=== PATIENT | male | born 1930 | race Caucasian/White ===

== ENCOUNTER 2016-08-07 06:39 | Day surgery (SDC) | payer MEDICARE ==
[2016-08-07] VITALS (11 sets, daily range): BP systolic 142–156; BP diastolic 91–102; PULSE 69–91; RESP 16–18; TEMP 97.6–98.4; O2SAT 94–97
[~2016-08-07] VITALS: Ht 167.6 cm; Wt 79.2 kg
[~2016-08-07 06:39] MED LIST: ASPI81TA82 PO; CARV25TA PO; CLOP75 PO; FISH1000 PO; FLUO10TA PO; LISI-360 PO; PROT40TA PO; SIMV40TA PO; TESS200C PO
[2016-08-07] MEDS ORDERED: ASPI81CH37 CHEW (07:11)
[2016-08-07] MEDS ORDERED: ROSU5 PO (07:11)
[2016-08-07] MEDS ORDERED: ALBU0.08 NEB (07:11)
[2016-08-07] MEDS ORDERED: NITR0.4S SL (07:11)
[2016-08-07] MEDS ORDERED: LISI-515 PO (07:11)
[2016-08-07] MEDS ORDERED: CARV25TA PO (07:11)
[2016-08-07] MEDS ORDERED: VITA100064 PO (07:11)
[2016-08-07] MEDS ORDERED: PANT40TA3 PO (07:11)
[2016-08-07] MEDS ORDERED: FURO40TA PO (07:11)
[2016-08-07] MEDS ORDERED: IPRA0.02 NEB (07:11)
[2016-08-07] MEDS ORDERED: ISOS30TA3 PO (07:11)
[2016-08-07] MEDS ORDERED: BUPR150T3 PO (07:11)
[2016-08-07] MEDS ORDERED: SODIUM CHLOR 0.9% 1000 ML INJ 1,000 ML IV SCH (07:19)
[2016-08-07] MEDS ORDERED: HEPARIN-NS/PF INJ 500 ML ONE (08:19)
[2016-08-07] MEDS ORDERED: IOHEXOL 350 MG/ML 100 ML BTL (for Cath Lab) OTHER ONE (08:19)
[2016-08-07] MEDS ORDERED: IOHEXOL 350 MG/ML 50 ML BTL (for Cath Lab) OTHER ONE (08:19)
[2016-08-07] MEDS ORDERED: MIDAZOLAM HCL 2 MG/2 ML VIAL ONE (08:30)
[2016-08-07] MEDS ORDERED: HEPARIN SODIUM - IV 10,000 UNITS/10 ML VIAL ONE (09:04)
[2016-08-07] MEDS ORDERED: CLOPIDOGREL 300 MG TAB ONE (09:13)
[2016-08-07] MEDS: SODIUM CHLOR 0.9% 1000 ML INJ 1,000 ML IV SCH ×2 (09:20→16:11)
--- NOTE | 2016-08-07 09:27 | CATHPROC ---
edulio HIS Report Study Information Study Number Admission Scheduled Start Study Start [id number] Aug 07 2016 6:39AM 08/07/2016 Aug 07 2016 8:19AM Deport Service Cardiac Catheterization Admit Source Facility Department Other [facility] - Factory Representative Physician and Clinical Staff Initial Ezra Pang Inventory AssistantAbilio Banuelos RN Circulator Clark RN, Isaías Trevino cathlab, cathlab Recorder Ab Harman RCIS(BS) [place] Danielle Hart RCIS TECH2 Procedures Performed Procedure Location (Site) Vessel Name Coronary Angiograms LCA Left Coronary Coronary Angiograms RCA Right Coronary Coronary Angiograms SVG-DIAG Left Coronary Coronary Angiograms SVG-OM CIRC Coronary Angiograms SVG-RCA Right Coronary L Heart Cath PTCA SVG-DIAG Left Coronary Stent SVG-DIAG Left Coronary Wire insertion Fem Art (right) Femoral Art Equipment Time Windows 7 Deployment Lead Description Size Mfg Part Number Used/Scraped [id number] 08:57 [employer] WIRE, ASAHI PROWATER 180CM 180CM Used *[id number] TRANSDUCER, TRUWAVE [id number] 08:21 KRUEGER [place] * Used W/STOCKCOCK *[id number] *[id number] [id number] *[id number] *[id number] *[id number] 08:21 Calester INDUSTRIES PACK, CCL CUSTOM * Used *[id number] 08:21 Calester PACER PEN, SKIN DUAL W/ RULER * Used *[id number] 09:03 MEDTRONIC BALLOON, 2.5 X 25MM EUPHORA 25MM Used *[id number] 09:01 MEDTRONIC STENT, 3.0 30 INTEGRITY 3.0 30 Used *[id number] 08:59 Drip In MEDICAL 30 ALFONSO INDEFLATOR Used *[id number] 08:21 Drip In MEDICAL SHEATH, FR6.5 PRELUDE 11CM FR 6.5 038ACT Used *[id number] 08:21 Drip In MEDICAL WIRE, 3MMJ .035 180CM 180CM Used *[id number] 08:21 NAMIC MANIFOLD, 4 PORT * Used *[id number] 08:47 NYCOMED OMNIPAQUE, 350 MG, 150ML 150ML [id number] Used [id number] 08:21 [facility] BLANKET,WARM AIR CCL * Used *[id number] Equipment Model, Serial, Lot Number and Expiration Data Description Model Number Serial Number Lot Number Expiration Date BALLOON, 2.5 X 25MM EUPHORA [id number] 12-09-2017 STENT, 3.0 30 INTEGRITY [id number] 03-17-2018 History: Current Medications Medication Dosage/Unit Route Frequency Last Date/Time Taken ASA Beta Bronwyn Statins (any) History: Allergies Allergy Reaction Cipro Morphine Motrin History: Risk Factors Family History of Dyslipidemia Previous [place] Previous Heart Failure Premature CAD Yes No Yes Yes Prior Valve Prior PCI Prior PCIDate Prior CABG Prior CABGDate Surgery No Yes 02/19/1997 Yes 02/20/2012 Cerebrovascular 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 Diabetes Disease Disease Disease No No No Yes No History: Symptoms/Diagnosis Selection Items Chest pain History: CV Disease Selection Items Known CAD History: Stress Tests Stress or Imaging Studies Performed Yes Standard Exercise Stress Test No Stress Echo No Stress Test SPECT Stress Test SPECT Result Stress Test SPECT Ischemia Risk/Extent Yes Positive Unavailable Stress Test CMR No Cardiac CTA Coronary Calcium Score No No History: Other Disease Selection Items HTN History: [place]/CV Data Previous Cath Date Previous CABG Date 02/19/1997 02/20/2012 History: Other Current Smoker No Labs Hgb (g/dl) Hct (%) WBC (l/cumm) Platelets (thousands) 12.00-18.00 37.00-55.00 4.80-10.80 140.00-450.00 13.6 40.5 8.6 177 Glucose (mg/dl) BUN (mg/dl) Creatinine (mg/dl) BUN:Creatinine (1:x) 60.00-110.00 8.00-20.00 0.10-9.00 10.00-20.00 116 23 1.5 15.3 Na (meq/l) K (meq/l) 138.00-146.00 3.80-5.10 138 3.9 INR (PTT:PT) 0.50-2.00 1.1 CPK-MB (ng/ML) 0.00-7.00 Not Drawn Medication Medication Total Dose (Bolus/Oral) Medication Total Dosage/Unit 1% XYLOCAINE 20 mL HEPARIN 5600 units PLAVIX 600 mg VERSED 2 mg Medications (Bolus/Oral) Medication Time Given Dosage/Unit Administered By Reason 1% XYLOCAINE 08/07/2016 8:40:51 AM 20 mL cathlab, cathlab Patient arrived on 20 mL 1% XYLOCAINE given by cathlab, cathlab via Subcutaneous. Ordered by Ezra Lane. VERSED 08/07/2016 8:40:52 AM 2 mg sIaías English RN 2 mg VERSED given in lab by Isaías English RN in Left Antecubital via Peripheral IV. Ordered by Ezra Paredes. HEPARIN 08/07/2016 8:56:00 AM 5600 units Isaías English RN 5600 units HEPARIN given in lab by Isaías English RN in Left Antecubital via Peripheral IV. Ordered by Ezra Lane. PLAVIX 08/07/2016 9:16:02 AM 600 mg Isaías English RN 600 mg PLAVIX given in lab by Isaías English RN via Oral. Ordered by Ezra Lane. Medication (Drip) Medication Time Given Dosage/Unit Concentration/Unit Diluent (ml) Solutio n IV Solutions 08/07/2016 8:19:20 AM 0 mL (IV) 500 NaCl .9 Patient arrived on IV Solutions given by cathlab, cathlab in Left Antecubital via Peripheral IV. Pump /Drip Flow = 20 ml/hr using NaCl .9. Ordered by Ezra Lane. Initial Case Assessment Cardiovascular HR Rhythm NIBP Chest Pain 64 sinus 146/85 0 Edema Present Skin color Skin None Normal Warm Dry Circulatory - Right Pulses Dorsalis Pedis Femoral 2 2 Scale (0,1,2,3,4,d) Circulatory - Left Pulses Dorsalis Pedis Femoral 2 2 Scale (0,1,2,3,4,d) Neurological State Oriented to time-place- Alert Moves all extremities person Respiration - General Respiration Rate SpO2 (%) (B/min) 15 97 Final Case Assessment Cardiovascular HR Rhythm NIBP Chest Pain 70 sinus 146/83 0 Edema Present Skin color Skin None Normal Warm Dry Circulatory - Right Pulses Dorsalis Pedis Femoral 2 2 Scale (0,1,2,3,4,d) Circulatory - Left Pulses Dorsalis Pedis Femoral 2 2 Scale (0,1,2,3,4,d) Neurological State Oriented to time-place- Alert Moves all extremities person Respiration - General Respiration Rate SpO2 (%) (B/min) 15 97 Chronological Log Time Study Chronological Log 8:19:10 Patient arrived via Bed. 8:19:11 Patient Name, D.O.B, / Armband Verified By R.N. 8:19:11 Consent signed by the physician and the patient and verified by the Factory Representative staff. 8:19:12 Pre-op and post- op instructions given; patient acknowledges understanding of instructions. 8:19:13 Verbal Stimulation=2 Physical Stimulation=2 Airway=2 Respiration=2 TOTAL=8. (0=absent, 1=li mited, 2=present) 8:19:13 Presedation assessment performed by Factory Representative RN. 8:19:14 Immediate Presedation assesment performed by physician. 8:19:15 Patient has been NPO for More than 6Hrs. 8:19:15 Skin Breakdown- none per patient 8:19:16 Patient Warmer Placed on the Table. 8:19:17 Dez Prominences Protected 8:19:19 A # 20 IV was noted in the Antecubital (left). Grade = 0 Patient arrived on IV Solutions given by cathlab, cathlab in Left Antecubital via Peripheral IV . Pump/Drip Flow = 20 8:19:20 ml/hr using NaCl .9. Ordered by Ezra Lane. 8:19:20 History and physical on the chart or being dictated. Assessment: Initial Case, HR=64 BPM, Rhythm=sinus, LBJV=053/85 mmhg, Chest Pain=0, Edema=None, Color=Normal, Skin = Warm, Dry Right Pulses: Gil Ped=2, Femoral=2 8:25:22 Left Pulses: Gil Ped=2, Femoral=2 Neurological: State=Alert, Ox3, OCONNOR Respiration: Resp=15 B/min, SpO2=97 % Vitals capture started with the following parameters, Patient=Adult, Interval=15 min, Initial Pr dgqyof=450 mmHg, 8:25:23 Deflation Rate=5 mmHg 8:26:00 Reference ECG taken 8:26:06 QR=757 bpm, UEUY=155/85 mmhg, SpO2=96.0 %, Resp=16 B/min, Pain=0, Carlo=10, Cantu=2 8:27:02 Reference ECG taken 8:30:29 MD arrived. 8:34:25 Bilateral groins prepped with 2% chlorhexidine, and with a 3 min. waiting time. 8:34:42 Contrast Scanned 8:34:43 Immediate Presedation assesment performed by physician. Time Out. Correct patient, correct procedure,correct physician, ,power injector not loaded with contrast with surgical 8:38:41 team present. Time Out Concurred by , individual staff in procedure 8:39:02 Case Start 8:40:51 Patient arrived on 20 mL 1% XYLOCAINE given by cathlab, cathlab via Subcutaneous. Ordered by Ezra Lane. 8:40:52 2 mg VERSED given in lab by Isaías English RN in Left Antecubital via Peripheral IV. Ordered b y Ezra Lane. 8:40:58 Pressure channel 1 zeroed. 8:41:03 HR=70 bpm, CGDH=750/95 mmhg, SpO2=96.0 %, Resp=15 B/min, Pain=0, Carlo=10, Cantu=2 8:45:20 Access site was Right Femoral Artery. 8:45:25 A SHEATH, FR6.5 PRELUDE 11CM FR 6.5 was advanced into the Fem Art (right) using the Percutan eous technique. A JL 4.0 INFINITI CATHETER FR 6 was advanced over a wire. OMNIPAQUE, 350 MG, 150ML 150ML was use d for 8:46:48 injections. Recorded Pressure: Ao, HR=75, Condition=Condition 1 8:47:08 (Aorta) Ao 139/71/99 8:47:27 The LCA was injected and visualized at various angles. OMNIPAQUE, 350 MG, 150ML 150ML used. 8:49:30 Catheter was removed A JR 4.0 INFINITI CATHETER FR 6 was advanced over a wire. OMNIPAQUE, 350 MG, 150ML 150ML was use d for 8:49:31 injections. 8:50:26 The SVG-DIAG was injected and visualized at various angles. OMNIPAQUE, 350 MG, 150ML 150ML u sed. 8:50:51 The SVG-OM was injected and visualized at various angles. OMNIPAQUE, 350 MG, 150ML 150ML use d. 8:52:08 The RCA was injected and visualized at various angles. OMNIPAQUE, 350 MG, 150ML 150ML used. 8:53:41 The SVG-RCA was injected and visualized at various angles. OMNIPAQUE, 350 MG, 150ML 150ML us ed. 8:54:19 Catheter was removed 8:55:59 A LCB GUIDE CATHETER FR 6 was advanced over a wire. OMNIPAQUE, 350 MG, 150ML 150ML was used for injections. 8:56:00 5600 units HEPARIN given in lab by Isaías English RN in Left Antecubital via Peripheral IV. Or dered by Ezra Lane. 8:56:08 HR=74 bpm, UGBV=806/83 mmhg, SpO2=94.0 %, Resp=16 B/min, Pain=0, Carlo=10, Cantu=2 8:58:31 A WIRE, ASAHI PROWATER 180CM 180CM was inserted via Fem Art (right). 8:59:24 Interventional wire has crossed the lesion An STENT, 3.0 30 INTEGRITY 3.0 30 Bare Metal Stent was inserted through a LCB GUIDE CATHETER FR 6 over a 9:01:10 WIRE, ASAHI PROWATER 180CM 180CM. 9:02:19 Stent not deployed. Stent removed and intact. A BALLOON, 2.5 X 25MM EUPHORA 25MM was inserted over WIRE, ASAHI PROWATER 180CM 180CM via the SV G- 9:02:24 DIAG. 9:03:15 Activated Clotting Time Drawn A BALLOON, 2.5 X 25MM EUPHORA 25MM over a WIRE, ASAHI PROWATER 180CM 180CM in the SVG-DIAG was 9:04:48 inflated using a 30 ALFONSO INDEFLATOR at 14 alfonso for 30 sec. 9:05:49 Balloon Removed. An STENT, 3.0 30 INTEGRITY 3.0 30 Bare Metal Stent was inserted through a LCB GUIDE CATHETER FR 6 over a 9:05:52 WIRE, ASAHI PROWATER 180CM 180CM. 9:08:15 ACT (Normal Range 90-180) = 261 A STENT, 3.0 30 INTEGRITY 3.0 30 was deployed using a 30 ALFONSO INDEFLATOR at 14 atmospheres for 2 0 seconds in 9:08:25 the SVG-DIAG. 9::19 Delivery device removed 9::24 Wire removed Vitals capture started with the following parameters, Patient=Adult, Interval=15 min, Initial P rhondyt=715 mmHg, 9:10:34 Deflation Rate=5 mmHg 9::56 Catheter was removed 9:11:13 In the Fem Art (right) the SHEATH, FR6.5 PRELUDE 11CM FR 6.[address] by Ezra Montero ms. 9:11:15 HR=70 bpm, QTOX=969/83 mmhg, SpO2=95.0 %, Resp=20 B/min, Pain=0, Carlo=10, Cantu=2 9:11:48 Case End Assessment: Final Case, HR=70 BPM, Rhythm=sinus, BXDV=596/83 mmhg, Chest Pain=0, Edema=None, Color=Normal, Skin = Warm, Dry Right Pulses: Gil Ped=2, Femoral=2 9:11:57 Left Pulses: Gil Ped=2, Femoral=2 Neurological: State=Alert, Ox3, OCONNOR Respiration: Resp=15 B/min, SpO2=97 % 9:13:14 HR=71 bpm, GEEA=162/81 mmhg, SpO2=95.0 %, Resp=16 B/min, Pain=0, Carlo=10, Cantu=2 9:14:47 Sterile dressing applied to site 9:14:47 No case complications noted. 9:14:48 Cine recording checked. 9:14:50 Bedside Report will be given. 9:14:50 Implantable Device card placed in patient's chart. 9:14:52 Verbal Stimulation=2 Physical Stimulation=2 Airway=2 Respiration=2 TOTAL=8. (0=absent, 1=li mited, 2=present) 9:15:02 A Left Heart Cath was performed. 9:15:13 HR=68 bpm, TMLB=476/79 mmhg, SpO2=95.0 %, Resp=20 B/min, Pain=0, Carlo=10, Cantu=2 9:16:02 600 mg PLAVIX given in lab by Isaías English RN via Oral. Ordered by Ezra Lane. 9:18:46 Vitals capture stopped. 9:19:31 Patient moved to [facility] End Study - Contrast Media Used In Study Contrast Total Opened (mL) Total Used (mL) Total Wasted (mL) Omnipaque 105 105 0 End Study - Maximum Contrast Load Max Contrast Load (mL) 264.4 End Study - Radiation Exposure Fluoro Time (minutes) 4.7 End Study - Patient Disposition Complications Transferred To Interventional Outcome No Factory Representative Holding successful
[2016-08-07] MEDS ORDERED: LIDOCAINE 2% JELLY 30 ML TUBE TOP PRN (09:30)
[2016-08-07] MEDS ORDERED: ACETAMINOPHEN 325 MG TAB PO PRN (09:30)
[2016-08-07] MEDS ORDERED: TEMAZEPAM 15 MG CAP PO PRN (09:30)
[2016-08-07] MEDS ORDERED: ASPIRIN 81 MG CHEW TAB PO SCH (09:30)
[2016-08-07] MEDS ORDERED: ONDANSETRON HCL 4 MG/2 ML VIAL IV PRN (09:30)
[2016-08-07] MEDS ORDERED: LORazepam 2 MG/ML VIAL IV PRN (09:30)
[2016-08-07] MEDS ORDERED: SODIUM CHLOR 0.9% 250 ML INJ 250 ML IV PRN (09:30)
[2016-08-07] MEDS ORDERED: MISC INFORMATION XX ONE (09:30)
[2016-08-07] MEDS ORDERED: ATROPINE SULFATE 1 MG/ML VIAL IV PRN (09:30)
[2016-08-07] MEDS ORDERED: LIDOCAINE HCL 1% 50 ML VIAL INFIL PRN (09:30)
[2016-08-07] MEDS ORDERED: BACITRACIN OINT 0.9 GM PKT TOP ONE (09:30)
[2016-08-07] MEDS ORDERED: PILL SPLITTER OTHER PRN (09:45)
[2016-08-07] MEDS: METOPROLOL TARTRATE 25 MG TAB PO SCH (20:58)
[2016-08-07] MEDS ORDERED: ATORVASTATIN 10 MG TAB PO SCH (21:00)
[2016-08-08] VITALS (10 sets, daily range): BP systolic 147–158; BP diastolic 94–106; PULSE 71–102; RESP 16–20; TEMP 98.3–98.6; O2SAT 93–97
[2016-08-08 05:07] LABS: AUTOMATED NEUTROPHIL # 7.4 TH/MM3 (1.8-7.7); BASOPHIL # 0.1 TH/MM3 (0-0.2); BASOPHIL % 0.5 % (0.0-2.0); EOSINOPHIL # 2.4 TH/MM3 (0-0.4); EOSINOPHIL % 20.5 % (0.0-4.0); HEMATOCRIT 39.4 % (39.0-51.0); HEMO FLAGS DIFF FINAL; LYMPH % 8.3 % (9.0-44.0); MEAN CELL VOLUME 91.1 FL (80.0-100.0); MEAN CORPUSCULAR HEMOGLOBIN 30.6 PG (27.0-34.0); MEAN CORPUSCULAR HGB CONC 33.6 % (32.0-36.0); MONO % 6.6 % (0.0-8.0); NEUT % 64.1 % (16.0-70.0); PLATELET COUNT 156 TH/MM3 (150-450); RED BLOOD COUNT 4.33 MIL/MM3 (4.50-5.90); RED CELL DISTRIBUTION WIDTH 15.1 % (11.6-17.2); WHITE BLOOD COUNT 11.6 TH/MM3 (4.0-11.0)
[2016-08-08 05:27] LABS: BICARBONATE 28.2 MEQ/L (21.0-32.0); POTASSIUM 3.7 MEQ/L (3.5-5.1)
[2016-08-08] MEDS ORDERED: ISOSORBIDE MONONITRATE 30 MG TAB PO SCH (07:00)
--- NOTE | 2016-08-08 07:31 | PD.CARD.PN ---
Subjective Subjective Remarks Feels well. Objective Vital Signs / I&O Vital Signs Date Time Temp Pulse Resp B/P Pulse Ox O2 Delivery O2 Flow Rate FiO2 08/08/16 05:15 98.6 96 16 158/104 96 08/08/16 05:00 78 08/08/16 04:00 80 08/08/16 03:00 82 08/08/16 02:00 88 08/08/16 01:00 88 08/08/16 00:00 98.4 82 16 152/94 93 08/08/16 00:00 86 08/07/16 23:00 79 08/07/16 22:00 80 08/07/16 21:00 82 08/07/16 20:30 98.4 91 16 156/102 94 08/07/16 20:00 78 08/07/16 19:00 77 08/07/16 18:00 72 08/07/16 17:00 72 08/07/16 16:00 69 08/07/16 16:00 97.8 69 16 153/96 95 08/07/16 15:00 72 08/07/16 10:05 96 Room Air I/O 08/07/16 08/07/16 08/07/16 08/08/16 08/08/16 08/08/16 07:00 15:00 23:00 07:00 15:00 23:00 Intake Total 1380 ml Output Total 1550 ml Balance -170 ml Intake Oral 480 ml IV Total 900 ml Output Urine Total 1550 ml # Bowel Movements 0 Physical Exam Groin clean Laboratory Laboratory Tests Test 08/08/16 04:20 White Blood Count 11.6 TH/MM3 Red Blood Count 4.33 MIL/MM3 Hemoglobin 13.2 GM/DL Hematocrit 39.4 % Mean Corpuscular Volume 91.1 FL Mean Corpuscular Hemoglobin 30.6 PG Mean Corpuscular Hemoglobin 33.6 % Concent Red Cell Distribution Width 15.1 % Platelet Count 156 TH/MM3 Mean Platelet Volume 9.0 FL Neutrophils (%) (Auto) 64.1 % Lymphocytes (%) (Auto) 8.3 % Monocytes (%) (Auto) 6.6 % Eosinophils (%) (Auto) 20.5 % Basophils (%) (Auto) 0.5 % Neutrophils # (Auto) 7.4 TH/MM3 Lymphocytes # (Auto) 1.0 TH/MM3 Monocytes # (Auto) 0.8 TH/MM3 Eosinophils # (Auto) 2.4 TH/MM3 Basophils # (Auto) 0.1 TH/MM3 CBC Comment DIFF FINAL Differential Comment Sodium Level 142 MEQ/L Potassium Level 3.7 MEQ/L Chloride Level 107 MEQ/L Carbon Dioxide Level 28.2 MEQ/L Anion Gap 7 MEQ/L Blood Urea Nitrogen 21 MG/DL Creatinine 1.28 MG/DL Estimat Glomerular Filtration 53 ML/MIN Rate Random Glucose 105 MG/DL Calcium Level 8.6 MG/DL Total Creatine Kinase 65 U/L Assessment and Plan Assessment and Plan OK to d/c home. Continue home meds including atorvastatin, metoprolol and isosorbide. Add clopidogrel 75 mg daily with ASA 81 mg daily. Activity and diet same. F/U clinic [address] MD Aug 08, 2016 07:31
[2016-08-08] MEDS: METOPROLOL TARTRATE 25 MG TAB PO SCH (08:06)
--- NOTE | 2016-08-08 08:15 | MA ---
cc: JAZMIN MÉNDEZ MD DATE 08/08/2016 PROCEDURE The patient was prepped and draped in the usual fashion. A 6 sheath was inserted percutaneously into the right femoral artery. Coronary angiography was done with Dacia preformed catheters. Left ventriculography was done with a pigtail catheter. RESULTS HEMODYNAMICS Aortic pressure was 150/70. Left ventriculography was not done. CORONARY ANGIOGRAPHY The left main coronary was normal. The left anterior descending artery arose from the left main. In the distal portion of the artery, two 75% stenoses were seen with diffuse disease noted distally. The circumflex arose from the left main. It gave off an obtuse marginal branch which was widely patent. The distal circumflex itself was then totally occluded. The right coronary was anatomically dominant. It was totally occluded at its origin. GRAFTS A saphenous vein graft to the right coronary was patent with good flow into the right coronary. Luminal irregularities were present throughout its course. A stenosis of approximately 30-40% was present in its proximal portion. The vein graft to the first diagonal branch demonstrated high-grade stenosis in its proximal portion which compromised the lumen by greater than 90%. The vein graft to the distal circumflex was present which demonstrated a 60-70% stenosis at its origin. INTERVENTION It is felt that the graft to the diagonal was the culprit vessel and a LCB guide was used and a DJO Globalwater wire was advanced easily to the distal portion of the artery. A free dilatation with a 2.5 dilating catheter was done as primary stenting was not able to be accomplished. Following this, a 3.0 x 30-mm bare metal stent was then deployed to 14 atmospheres with an excellent cosmetic result. YANETH-3 flow as present both pre and post-procedure and there is essentially 0 residual. The sheath was sutured in place. The patient left the laboratory in good condition. CONCLUSIONS Successful PTCA and stenting of a vein graft to the first diagonal. It is felt that, if the patient's angina persists, consideration for PTCA of the distal LAD and/or graft to the circumflex could also be considered. MD TAMMY [place]/WALTER /7:46 AM /8:05 AM
[2016-08-08] MEDS ORDERED: CLOPIDOGREL 75 MG TAB PO SCH (09:00)
[2016-08-08] MEDS ORDERED: LISINOPRIL 5 MG TAB PO SCH (09:00)
[2016-08-08] MEDS ORDERED: PLAV75TA29 PO (09:39)
--- NOTE | 2016-08-10 07:08 | EKG ---
Date Performed: 08/07/2016 Time Performed: 07:34:54 PTAGE: 86 years EKG: Sinus arrhythmia. Left anterior fascicular block Poor R wave progression - cannot rule out septal infarct Possible left ventricular hypertrophy Lateral T wave changes are probably due to ventr icular hypertrophy or ischemia Abnormal ECG Compared to prior tracing no significant change. PREVIOUS TRACING : 02/03/2011 07.03 DOCTOR: Zachary Valdes Interpretating Date/Time 08/10/2016 07:06:51
== END 2016-08-08 10:42 | disposition home or self-care (01) ==
LOC: HDOC 06:39 → HDIC 06:41 → HDOC 14:35 → HDIC 14:35 → HCIN 14:36 → HDOC 08-08 10:42
PROVIDERS: ATTEND Internal Medicine Cardiovascular Disease
DX: I25.10 Atherosclerotic heart disease of native coronary artery without angina pectoris (principal); T82.858A Stenosis of other vascular prosthetic devices, implants and grafts, initial encounter; I25.82 Chronic total occlusion of coronary artery; Y83.2 Surgical operation with anastomosis, bypass or graft as the cause of abnormal reaction of the patient, or of later complication, without mention of misadventure at the time of the procedure; E11.40 Type 2 diabetes mellitus with diabetic neuropathy, unspecified; E11.22 Type 2 diabetes mellitus with diabetic chronic kidney disease; I13.0 Hypertensive heart and chronic kidney disease with heart failure and stage 1 through stage 4 chronic kidney disease, or unspecified chronic kidney disease; N18.3 Chronic kidney disease, stage 3 (moderate); I25.2 Old myocardial infarction; E78.5 Hyperlipidemia, unspecified; I25.5 Ischemic cardiomyopathy; J44.9 Chronic obstructive pulmonary disease, unspecified; I50.9 Heart failure, unspecified; Z88.1 Allergy status to other antibiotic agents; Z88.5 Allergy status to narcotic agent; Z88.8 Allergy status to other drugs, medicaments and biological substances; Z79.82 Long term (current) use of aspirin
CPT/HCPCS: 80048; 82550; 85002; 85025; 85347; 92928; 92937; 93005; 93454; C1769; C1876; C1887; C1893; J1644; J2250; J7030; Q9967